=== PATIENT | male | born 1990 | race Caucasian/White ===

== ENCOUNTER → 2020-01-17 11:56 | Outpatient (BNVA) | payer OTHER, SELFPAY | PROVIDERS: Visit Provider Nurse Practitioner Family | DX: Z11.59 Encounter for screening for other viral diseases (principal); R43.0 Anosmia; J06.9 Acute upper respiratory infection, unspecified | CPT/HCPCS: 87635 ==

== ENCOUNTER 2021-01-05 10:30 | Emergency (ER) | payer SELFPAY ==
[2021-01-05 10:49] VITALS: BP 142/89; PULSE 79; RESP 17; TEMP 36.9; O2SAT 99; BMI 39.5
[2021-01-05 12:00] VITALS: BP 133/87; PULSE 74; O2SAT 99
[2021-01-05 12:55] VITALS: BP 142/85; PULSE 72; RESP 18; O2SAT 99
--- NOTE | 2021-01-05 13:00 | PC.NURSE ---
pt outside smoking review with pt the importance of staying in the waiting room. Pt denies Nausea/vomiting. pain is decrease
--- NOTE | 2021-01-05 14:21 | W.ED.ABDPA2 ---
HPI - Abdominal Pain General: Chief Complaint: Abdominal Pain Stated Complaint: ABD PAIN Time Seen by Provider: 01/05/21 14:11 History of Present Illness: HPI narrative: Patient is a 30-year-old male who comes to the ED with abdominal pain. Patient says that friends a week ago he noticed a small nodule that was tender right by his umbilicus. 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 He is able to push it back in and the nodule go away. Sometimes when he has the bulge coming out from his umbilicus region he feels quite a bit of pain. Currently here in the ED he does not have any protruding mass or hernia present. He also says his abdominal pain is very mild currently. Denies any vomiting, fever, chills, bladder or bowel symptoms. Associated Symptoms: Denies chills, constipation, diarrhea, dysuria, fever(s), hematochezia, hematuria, nausea and vomiting Review of Systems Const: Denies: fever(s), chills or fatigue Eyes: Denies: change in vision or eye discomfort ENMT: Denies: throat pain, odynophagia, nasal discharge or nasal congestion Card: Denies: chest pain, palpitations, edema, swelling of feet/ankles, dyspnea on exertion or orthopnea Resp: Denies: dyspnea, productive cough or non-productive cough GI: Reports: abdominal pain (hernia around umbilicus.); Denies: nausea, vomiting, diarrhea, constipation or hematochezia : Denies: flank pain, difficulty urinating, dysuria or hematuria Musc: Denies: neck pain, back pain or extremity swelling Skin/Breast: Denies: rash or new lesions Neuro: Denies: headache(s), numbness in extremities or weakness in extremities Physical Exam Const: COMMON NORMALS: no acute distress, patient oriented x3 and alert GENERAL APPEARANCE: cooperative and comfortable HENMT: COMMON NORMALS: normocephalic HEAD & SCALP: normocephalic MOUTH: Normal oral and palatal mucosa present THROAT: posterior oropharynx normal and uvula midline Neck/C-Spine: COMMON NORMALS: supple GENERAL: Yes normal visual inspection Resp: COMMON NORMALS: normal respiratory effort, No retractions, No use of accessory muscles and clear to auscultation bilaterally AUSCULTATION: clear to auscultation bilaterally Cardio: COMMON NORMALS: regular rate, regular rhythm, S1 normal heart sound present, S2 normal heart sound present, No gallops present (Cardio), No clicks present (Cardio), No murmurs present (Cardio) and Peripheral pulses 2+ throughout RATE: regular rate RHYTHM: regular rhythm HEART SOUNDS: S1 normal heart sound present and S2 normal heart sound present PERIPHERAL PULSES: Peripheral pulses 2+ throughout GI: COMMON NORMALS: Normal to inspection, nondistended, normoactive bowel sounds present, Soft to palpation, non-tender and no masses PALPATION: Yes Soft to palpation and No Hernia present (No palpable mass or nodule noted near the umbilicus.) : COMMON NORMALS: Yes no CVA tenderness BLADDER/KIDNEY EXAM: Yes no CVA tenderness Back/Pelvis: COMMON NORMALS: no CVA tenderness Extremity: COMMON NORMALS: normal to inspection Neuro: COMMON NORMALS: patient oriented x3 SENSORIUM/ORIENTATION: Yes alert Skin: GENERAL SKIN EXAM: dry skin Course Vital Signs: Vital signs: Vital Signs Temperature 98.5 F 01/05/21 10:49 Pulse Rate 72 01/05/21 12:55 Respiratory Rate 18 01/05/21 12:55 Blood Pressure 142/85 01/05/21 12:55 Pulse Oximetry 99 01/05/21 12:55 MDM - Abdominal Pain MDM Narrative: Medical decision making narrative: Patient is a 30-year-old male comes to the ED with complaints of a hernia around his umbilicus. He says it is reducible and whenever it starts protruding he is able to push it back in. Here in the ED patient has no pain, nausea vomiting, diarrhea or fevers. Exam is unremarkable and no palpable hernia identified on abdomen. Labs were unremarkable. CT of abdomen pelvis showed a small fat containing umbilical hernia. I placed an order with case management for patient to be referred to general surgery to evaluate his umbilical hernia. Patient was discharged home and diagnosed with an umbilical hernia. I told patient case management will be contacting them in the next several days set up appointment with general surgery to evaluate his hernia. Return to ED precautions given. Patient understood and agreed with plan. Lab Data: Attestation: I reviewed the patient's lab results. Labs: Lab Results 01/05/21 01/05/21 14:20 14:20 WBC 9.8 10^3/uL 10^3/ uL (4.0-10.0) RBC 4.96 10^6/uL 10^6 /uL (4.1-5.3) Hgb 16.0 g/dL g/dL (11.7-16.6) Hct 46.9 % % (42.0-52.0) MCV 94.6 fl H fl (80-94) MCH 32.3 pg pg (28.0-34.0) MCHC 34.1 g/dL g/dL (30.0-36.0) RDW 12.1 % % (12.1-15.1) Plt Count 222 10^3/cmm 10^3 /cmm (130-400) MPV 11.1 fL H fL (7.4-10.4) Neut % (Auto) 63.9 % % Lymph % (Auto) 26.1 % % [place] % (Auto) 7.0 % % Eos % (Auto) 1.6 % % Baso % (Auto) 1.0 % % Neut # (Auto) 6.25 10^3/uL 10^3 /uL (1.8-7.7) Lymph # (Auto) 2.6 10^3/uL 10^3/ uL (0.8-4.8) [place] # (Auto) 0.7 10^3/uL 10^3/ uL (0.2-0.9) Eos # (Auto) 0.2 10^3/uL 10^3/ uL (0.0-0.8) Baso # (Auto) 0.1 10^3/uL 10^3/ uL (0.0-0.1) Nucleated RBC % (a uto) 0 % % Nucleated RBCs # 0.0 /100WBC /100W BC Sodium 140 mmol/L mmol/L (136-145) Potassium 4.2 mmol/L mmol/L (3.5-5.1) Chloride 103 mmol/L mmol/L (98-107) Carbon Dioxide 26 mmol/L mmol/L (22-29) Anion Gap 15.2 (5-19) BUN 10 mg/dL mg/dL (6-20) Creatinine 0.7 mg/dL mg/dL (0.7-1.2) GFR Calculation 132.4 mL/min H mL /min (90-130) Glucose 73 mg/dL mg/dL (65-115) Calculated Osmolal ity 288 mOsm/kg mOsm/ kg (285-295) Calcium 8.9 mg/dL mg/dL (8.5-10.5) Total Bilirubin 0.3 mg/dL mg/dL (0.15-1.2) AST 32 U/L U/L (0-40) ALT 41 U/L U/L (0-41) Alkaline Phosphata se 76 IU/L IU/L (40-130) Total Protein 7.5 g/dL g/dL (6.6-8.7) Albumin 4.5 g/dL g/dL (3.5-5.2) Globulin 3.0 g/dL g/dL (1.3-4.6) Lipase 71 U/L H U/L (13-60) Imaging Data ^: CT Abd/Pel: Attestation: I personally reviewed and interpreted this imaging study as follows: Radiologist's impression: [facility] [address] [address] Scan Report Signed Patient: Norman Lamar Unit #: [id number] : 1990 Age/Sex: 30 / M ADM Date: 01/05/21 Loc: ER Room/Bed: Attending Dr: Ordering Provider/Ordering MD: Geo James Date of Service: 01/05/21 Procedure(s): CT abdomen pelvis w con* [id number] Accession Number(s): [id number] Report Number: [id number] PROCEDURE INFORMATION: Exam: CT Abdomen And Pelvis With Contrast Exam date and time: 01/05/2021 2:21 PM Age: 30 years old Clinical indication: Abdominal pain; Periumbilical; Patient HX: C/O intermittent umbilical pain and protrusion; Additional info: Umbilical hernia TECHNIQUE: Imaging protocol: Computed tomography of the abdomen and pelvis with contrast. Radiation optimization: All CT scans at this facility use at least one of these dose optimization techniques: automated exposure control; mA and/or kV adjustment per patient size (includes targeted exams where dose is matched to clinical indication); or iterative reconstruction. Contrast material: OMNI 300; Contrast volume: 95 ml; Contrast route: INTRAVENOUS (IV); COMPARISON: No relevant prior studies available. RADIATION DOSE METRICS: Total DLP (mGy-cm): 1733.63 FINDINGS: Liver: Normal. No mass. Gallbladder and bile ducts: Normal. No calcified stones. No ductal dilation. Pancreas: Normal. No ductal dilation. Spleen: Normal. No splenomegaly. Adrenal glands: Normal. No mass. Kidneys and ureters: Normal. No hydronephrosis. Stomach and bowel: No evidence of obstruction. No mucosal thickening. Appendix: No evidence of appendicitis. Intraperitoneal space: Unremarkable. No free air. No significant fluid collection. Vasculature: Unremarkable. No abdominal aortic aneurysm. Lymph nodes: Unremarkable. No enlarged lymph nodes. Urinary bladder: Unremarkable as visualized. Reproductive: Unremarkable as visualized. Bones/joints: Unremarkable. No acute fracture. Soft tissues: Tiny fat containing umbilical hernia. No herniation of bowel. CT/CT abdomen pelvis w con* [id number] IMPRESSION: Tiny fat containing umbilical hernia. Radiation Dose CTDIVOL = (mGy): DLP = 1733.63 (mGy-cm) Dictated By: Norman Mobley DO Signed By: Norman Mobley DO Signed Date/Time: 01/05/21 1507 DD/ 1505 Discharge Plan Discharge Patient Disposition: Home Clinical Impression: Hernia, umbilical Qualifiers: Obstruction and gangrene presence: without obstruction or gangrene Qualified Code(s): K42.9 - Umbilical hernia without obstruction or gangrene Condition: Stable Prescriptions: No Action No Known Home Medications RF: 0 Discharge Orders: Discharge ED (Routine); Ordered 01/05/21 Ordered By: Geo James Discharge Diet: Regular Discharge Activity: Resume usual activity Patient Instructions: Umbilical Hernia (ED) Activity Restrictions/Additional Instructions: Follow-up with medical provider as directed. Case management should be contacting you the next several days set up an appointment with a general surgeon. Take medications as prescribed. Return to the ER or your medical provider if condition worsens. Please read and understand discharge instructions. Thank you for choosing [facility] for your healthcare needs today. Please realize this is an emergency room and that we are providing you with a medical screening exam and this may not be complete and all inclusive of all the testing and or work up that you may need to determine your ailment or severity of your illness. It is very important that you follow up as instructed or that you return to the Emergency Department should you have concerns or if your condition changes or worsens in any way. Stand Alone Forms: Work/School Release Coding Level of Care Code ED Neon Light Installer for Silvana Fwroberto Exam Comprehensive
[2021-01-05 14:41] LABS: Basophils # 0.1 10^3/uL (0.0-0.1); Eosinophils # 0.2 10^3/uL (0.0-0.8); Eosinophils % 1.6 %; Hematocrit 46.9 % (42.0-52.0); Lymphocytes # 2.6 10^3/uL (0.8-4.8); Lymphocytes % 26.1 %; Mean Corpuscular HGB Conc 34.1 g/dL (30.0-36.0); Mean Corpuscular Hemoglobin 32.3 pg (28.0-34.0); Mean Corpuscular Volume 94.6 fl (80-94); Mean Platelet Volume 11.1 fL (7.4-10.4); Monocytes # 0.7 10^3/uL (0.2-0.9); Neutrophils # 6.25 10^3/uL (1.8-7.7); Neutrophils % 63.9 %; Nucleated Red Blood Cells % 0 %; Platelet Count 222 10^3/cmm (130-400); Red Blood Count 4.96 10^6/uL (4.1-5.3); Red Cell Distribution Width 12.1 % (12.1-15.1); White Blood Count 9.8 10^3/uL (4.0-10.0)
[2021-01-05] MEDS: iohexol 300 mg/mL 100 mL Btl IV (14:50)
[2021-01-05 15:02] LABS: Alanine Aminotransferase 41 U/L (0-41); Albumin Level 4.5 g/dL (3.5-5.2); Alkaline Phosphatase 76 IU/L (40-130); Blood Urea Nitrogen 10 mg/dL (6-20); Calcium 8.9 mg/dL (8.5-10.5); Carbon Dioxide 26 mmol/L (22-29); Chloride 103 mmol/L (98-107); Glomerular Filtration Rate 132.4 mL/min (90-130); Glucose 73 mg/dL (65-115); Lipase 71 U/L (13-60); Osmolality Calculated 288 mOsm/kg (285-295); Sodium 140 mmol/L (136-145); Total Bilirubin 0.3 mg/dL (0.15-1.2); Total Protein 7.5 g/dL (6.6-8.7)
[2021-01-05 15:17] LABS: Anion Gap 15.2 (5-19); Aspartate Amino Transferase 32 U/L (0-40); Potassium 4.2 mmol/L (3.5-5.1)
--- NOTE | 2021-01-06 10:09 | DCPLANNER ---
manager credit risk had message to schedule a followup appointment for patient with general surgery. manager credit risk emailed patients information to Dayami at [facility] General Surgery. Patients information will be printed and reviewed. Clinic will call patient with appointment information.
--- NOTE | 2021-01-09 15:08 | DCPLANNER ---
Patient has a follow up appointment scheduled for Wednesday, January 13, 2021 at 10:[address] Chambers. Clinic will call patient with appointment information.
--- NOTE | 2021-02-13 08:02 | DCPLANNER ---
Patient had a follow up appointment scheduled for 01.13.21 at 10:[address] Chambers at general surgery - patient did attend appointment.
== END 2021-01-05 15:29 | disposition home or self-care (01) ==
PROVIDERS: Emergency Provider Physician Assistant
DX: K42.9 Umbilical hernia without obstruction or gangrene (principal)
CPT/HCPCS: 74177; 80053; 83690; 85025; 99282; Q9967

== ENCOUNTER → 2021-01-16 14:47 | Outpatient (BNVA) | payer OTHER, SELFPAY | PROVIDERS: Visit Provider Surgery | DX: K42.9 Umbilical hernia without obstruction or gangrene (principal); Z01.812 Encounter for preprocedural laboratory examination; Z20.822 Contact with and (suspected) exposure to COVID-19 | CPT/HCPCS: 87635 ==

== ENCOUNTER 2021-01-21 11:44 | Day surgery (SDC) | payer OTHER, SELFPAY ==
[2021-01-20 13:54] VITALS: BMI 37.4
[2021-01-23 08:45] VITALS: BP 152/87; PULSE 82; RESP 16; TEMP 36.9; O2SAT 98
[2021-01-23] MEDS: sodium chloride 0.9% 1,000 ML 30 ML IV (09:28)
[2021-01-23] MEDS: acetaminophen 1,000 MG/100 ML PIGGYBACK 400 MG IV (09:29)
--- NOTE | 2021-01-23 09:41 | W.PM.OPSUD ---
Surgery/Procedure H&P Update DATE OF PROCEDURE: January 23, 2021 DATE H&P PERFORMED: 01/13/21 H&P UPDATE INFORMATION: I have reviewed H&P completed within last 30 days, I have examined patient prior to procedure and No changes to prior documentation PREOP DIAGNOSIS: Umbilical hernia PRIMARY INDICATION FOR PROCEDURE: The same PLANNED PROCEDURE: Operation Date: 01/23/21 10:15 Proposed Procedures p Umbilical Hernia Repair [id number] k42.9(Not Applicable) - Ten Chambers MD
[2021-01-23] MEDS: lidocaine 2% INJ 20 mL INJECTION (10:25)
--- NOTE | 2021-01-23 10:42 | PM.OP ---
Operative Report Date of procedure: January 23, 2021 Pre-op Diagnosis: Umbilical hernia Post-op diagnosis: same Post-op Findings: Small fascial defect about a centimeter in diameter Procedure Done: Open primary umbilical hernia repair Surgeon: Ten Chambers Air Antisubmarine Officer: Surgical chandrakant Lyon Circulating nurse Bertha Anesthesia: General (GETA leather flesher Michelle) Estimated blood loss (mL): 5 Condition: stable Disposition: same day Brief History: Symptomatic umbilical hernia. Procedure: Patient was identified in holding area and the site of the hernia was marked by me ,Patient was brought then to the operating room, general endotracheal anesthesia was administered by the anesthesia provider.prophylactic IV antibiotics were given per protocol Time-out was done verifying the patient's name/date of /planned procedure and destination after the procedure, all were in agreement. SCDs confirmed to be functioning, preoperative antibiotics administered per protocol, and beta babita protocol was confirmed. Prep and drape of the abdomen was done under the usual sterile technique. I started by Infraumbilical skin incision, I was able to identify a small umbilical hernia in the form of preperitoneal fat, dissection was carried all the way down to the fascia, preperitoneal content was pushed back and fascial defect was about centimeter in diameter. I was able to free the overlying fat on top of the fascia, facilitate primary closure under direct visualization I was able to use #1 PDS to repair the defect primarily as a [id number],thorough irrigation of the wound was then achieved and hemostasis.Followed by 2-0 Vicryl for deep subdermal continuous stitches, followed by 3-0 Vicryl, then 4-0 Monocryl was used for subcuticular closure of the skin incision. Lidocaine 2% was used for local infiltration to help postoperative pain Dermabond was then applied followed by an abdominal binder. Counts of sponges,needles and instruments were completed at the end of the procedure Patient tolerated the procedure well and was taken to the recovery area in stable condition I was present for the whole entire procedure
[2021-01-23 11:01] VITALS: BP 114/59; PULSE 86; RESP 18; TEMP 36.2; O2SAT 92
[2021-01-23 11:05] VITALS: BP 126/80; PULSE 79; RESP 18; TEMP 36.5; O2SAT 94
[2021-01-23 11:17] VITALS: BP 124/75; PULSE 67; RESP 18; TEMP 36.6; O2SAT 97
[2021-01-23 11:50] VITALS: BP 131/74; PULSE 71; RESP 16; TEMP 36.6; O2SAT 98
--- NOTE | 2021-01-23 12:25 | ANE.PACU2 ---
Inpatient post-anesthesia follow up: Airway intact: Yes Vital signs: Temperature 97.8 F Pulse Rate 71 Respiratory Rate 16 Blood Pressure 131/74 Pulse Oximetry 98 Oxygen Delivery Me thod Room Air Oxygen Flow Rate Fraction of Inspir ed Oxygen Hydration adequate: Yes Nausea and vomiting: No Pain level: 2 Mental status: Baseline
== END 2021-01-23 11:55 | disposition home or self-care (01) ==
PROVIDERS: Visit Provider Surgery
PROC: (CPT 49585; principal; 2021-01-23 10:15)
DX: K42.9 Umbilical hernia without obstruction or gangrene (principal); Z82.49 Family history of ischemic heart disease and other diseases of the circulatory system; F17.210 Nicotine dependence, cigarettes, uncomplicated
CPT/HCPCS: 49585; 96365; J0690; J2250; J2405; J2704; J2710; J3010; J3490; J7030

== ENCOUNTER → 2023-11-25 15:13 | Outpatient (BNVA) | payer OTHER, SELFPAY | PROVIDERS: PCP Nurse Practitioner Family; Visit Provider Nurse Practitioner Family | DX: B37.2 Candidiasis of skin and nail (principal) | CPT/HCPCS: 80053 ==

== ENCOUNTER → 2023-12-09 08:38 | Outpatient (BNVA) | payer OTHER, SELFPAY | PROVIDERS: PCP Nurse Practitioner Family; Visit Provider Nurse Practitioner Family | DX: R74.01 Elevation of levels of liver transaminase levels (principal) | CPT/HCPCS: 80053 ==

== ENCOUNTER 2024-03-29 01:55 | Emergency (ER) | payer OTHER, SELFPAY ==
[2024-03-29] VITALS (9 sets, daily range): BP systolic 126–160; BP diastolic 72–110; PULSE 59–69; RESP 18–20; TEMP 36.7; O2SAT 93–99; BMI 38.0
--- NOTE | 2024-03-29 02:12 | W.ED.ABDPA2 ---
HPI - Abdominal Pain General: Chief Complaint: Abdominal Pain Stated Complaint: left side pain Time Seen by Provider: 03/29/24 02:11 History of Present Illness: 34-year-old male, generally healthy, who awoke at 1230 this morning with left lower quadrant left flank pain. Pain is intense. He is nauseated. He has not vomited. No diarrhea. He has a history of a periumbilical hernia surgery. That is his only surgery. He felt well yesterday. No blood in the stool. No hematuria that he knows of. Related Data Previous Rx's Medication Instructions Recorded allopurinol 300 mg tablet 300 mg PO DAILY #90 tabs 07/20/23 indomethacin 75 mg 75 mg PO TID #21 caps 07/20/23 capsule,extended release amoxicillin 500 mg-potassium 1 tab PO TID 10 days #30 tabs 02/28/24 clavulanate 125 mg tablet (Augmentin) ondansetron 4 mg disintegrating 4 mg PO Q6H PRN nausea and 03/29/24 tablet vomiting #14 tabs oxycodone-acetaminophen 7.5 mg-325 1 tab PO Q6H PRN pain #7 tabs 03/29/24 mg tablet (Percocet) tamsulosin 0.4 mg capsule (Flomax) 0.4 mg PO DAILY #7 caps 03/29/24 Allergies Allergy/AdvReac Type Severity Reaction Status Date / Time No Known Allergies Allergy Verified 03/29/24 02:10 [facility] ED PFSH: Medical History Gout Elevated LFTs Umbilical hernia Family History Other CAD (coronary artery disease) Cancer Dementia Denies family history of Diabetes Chronic kidney disease (CKD) Lung disease Stroke Social History Smoking and tobacco/nicotine status: current every day tobacco/nicotine user Alcohol intake: current Alcohol intake frequency: few times a month Substance/Drug Use: current Substance/Drug use frequency: daily Lives independently: Yes Household members: family Physical Exam Const: GENERAL APPEARANCE: cooperative and ill appearing (And pain); not frail appearing HENMT: COMMON NORMALS: normocephalic, atraumatic and Normal external nose present HEAD & SCALP: normocephalic and atraumatic FACE & SINUS: normal facial exam and face symmetric NOSE: Normal external nose present Eye: COMMON NORMALS: Equal, round and reactive pupils present and EOMs intact bilaterally PUPIL: Yes Equal, round and reactive pupils present Neck/C-Spine: GENERAL: Yes trachea midline Chest: CHEST: Yes Symmetrical chest wall rise Resp: COMMON NORMALS: normal respiratory effort, No retractions, No use of accessory muscles and clear to auscultation bilaterally AUSCULTATION: clear to auscultation bilaterally Cardio: COMMON NORMALS: regular rate and regular rhythm RATE: regular rate RHYTHM: regular rhythm GI: COMMON NORMALS: Normal to inspection, nondistended, normoactive bowel sounds present PALPATION: Yes Tenderness to palpation present (GI) Details: LLQ and No Guarding due to palpation present (GI) : BLADDER/KIDNEY EXAM: Yes CVA tenderness on the left Back/Pelvis: GENERAL BACK: Yes CVA tenderness Extremity: COMMON NORMALS: no pedal edema Neuro: DANDRE COMA SCALE: document GCS findings Dandre coma scale eye opening: Spontaneous Dandre coma scale verbal response: Orientated [place] coma scale motor response: Obey commands Dandre coma scale total score: 15 SENSORY EXAM: Yes extremities (intact) Psych: COMMON NORMALS: speech normal SPEECH: Yes normal speech Skin: COMMON NORMALS: no rashes or lesions noted GENERAL SKIN EXAM: no rashes or lesions noted Course Vital Signs: Vital signs: Vital Signs Temperature 98.0 F 03/29/24 02:01 Pulse Rate 59 L 03/29/24 04:05 Respiratory Rate 18 03/29/24 02:27 Blood Pressure 126/92 03/29/24 04:05 Pulse Oximetry 95 03/29/24 04:05 Oxygen Delivery Me thod Room Air 03/29/24 02:01 MDM - Abdominal Pain Medical Decision Making White blood cell count is 11. Bicarbonate is 20. Blood sugar is 140. Lipase is mildly elevated at 150. Other laboratory is completely unremarkable. CT shows left hydronephrosis secondary to a 3 mm left UVJ calculus. There is no evidence of urinary tract infection on urinalysis. His pain is greatly improved. He will be allowed discharge with Flomax, antiemetic, pain medication. Return for worsening symptoms despite treatment. Lab Data 03/29/24 02:17 03/29/24 02:17 Labs/Radiology: Radiology Impressions Abdomen/Pelvis CT 03/29/24 02:24 IMPRESSION: 1. The left kidney is mildly edematous. There is mild left hydronephrosis and proximal hydroureter secondary to obstructive 3 mm calculus of the left ureterovesical junction. 2. No bowel obstruction or acute inflammation. Laboratory Results WBC 11.42 10^3/uL (3.29-11.43) 03/29/24 02:17 RBC 4.89 10^6/uL (3.85-5.65) 03/29/24 02:17 Hgb 16.00 g/dL (11.27-16.99) 03/29/24 02:17 Hct 45.9 % (37-53) 03/29/24 02:17 MCV 93.9 fl (82-101) 03/29/24 02:17 MCH 32.7 pg (27-33) 03/29/24 02:17 MCHC 34.9 g/dL (30-55) 03/29/24 02:17 RDW 12.0 % (12.1-15.1) L 03/29/24 02:17 Plt Count 229 10^3/cmm (157-399) 03/29/24 02:17 MPV 10.4 fL (7.4-10.4) 03/29/24 02:17 Neut % (Auto) 53.6 % 03/29/24 02:17 Lymph % (Auto) 34.4 % 03/29/24 02:17 [place] % (Auto) 8.3 % 03/29/24 02:17 Eos % (Auto) 2.3 % 03/29/24 02:17 Baso % (Auto) 0.9 % 03/29/24 02:17 Neut # (Auto) 6.12 10^3/uL (1.8-7.7) 03/29/24 02:17 Lymph # (Auto) 3.9 10^3/uL (0.8-4.8) 03/29/24 02:17 [place] # (Auto) 1.0 10^3/uL (0.2-0.9) H 03/29/24 02:17 Eos # (Auto) 0.3 10^3/uL (0.0-0.8) 03/29/24 02:17 Baso # (Auto) 0.1 10^3/uL (0.0-0.1) 03/29/24 02:17 Nucleated RBC % (auto) 0 % 03/29/24 02:17 Nucleated RBCs # 0.0 /100WBC 03/29/24 02:17 Sodium 139 mmol/L (136-145) 03/29/24 02:17 Potassium 3.8 mmol/L (3.5-5.1) 03/29/24 02:17 Chloride 104 mmol/L (98-107) 03/29/24 02:17 Carbon Dioxide 20 mmol/L (22-29) L 03/29/24 02:17 Anion Gap 18.8 (5-19) 03/29/24 02:17 BUN 12 mg/dL (6-20) 03/29/24 02:17 Creatinine 1.0 mg/dL (0.7-1.2) 03/29/24 02:17 GFR Calculation 85.5 mL/min (90-130) L 03/29/24 02:17 Glucose 140 mg/dL (65-115) H 03/29/24 02:17 Calculated Osmolality 290 mOsm/kg (285-295) 03/29/24 02:17 Calcium 9.1 mg/dL (8.5-10.5) 03/29/24 02:17 Total Bilirubin 0.2 mg/dL (0.15-1.2) 03/29/24 02:17 AST 29 U/L (0-40) 03/29/24 02:17 ALT 47 U/L (0-41) H 03/29/24 02:17 Alkaline Phosphatase 107 U/L (40-130) 03/29/24 02:17 C-Reactive Protein 7.4 mg/L (0.0-4.9) H 03/29/24 02:17 Total Protein 7.2 g/dL (6.6-8.7) 03/29/24 02:17 Albumin 4.3 g/dL (3.5-5.2) 03/29/24 02:17 Globulin 2.9 g/dL (1.3-4.6) 03/29/24 02:17 Lipase 151 U/L (13-60) H 03/29/24 02:17 Urine Color Yellow (Yellow) 03/29/24 03:19 Urine Appearance Clear (CLEAR) 03/29/24 03:19 Urine pH 5.0 (5-7) 03/29/24 03:19 Ur Specific [place] 1.029 (1.005-1.030) 03/29/24 03:19 Urine Protein 1+ (Negative) A 03/29/24 03:19 Urine Glucose (UA) Negative (Normal) 03/29/24 03:19 Urine Ketones Negative (Negative) 03/29/24 03:19 Urine Blood 1+ (Negative) A 03/29/24 03:19 Urine Nitrate Negative (Negative) 03/29/24 03:19 Urine Bilirubin Negative (Negative) 03/29/24 03:19 Urine Urobilinogen 1.0 mg/dL (Negative) 03/29/24 03:19 Ur Leukocyte Esterase Negative (Negative) 03/29/24 03:19 Urine RBC 0-2 /hpf (0-2) 03/29/24 03:19 Urine WBC 0-5 /hpf (0-5) 03/29/24 03:19 Ur Squamous Epith Cells 0-5 /hpf (0-5) 03/29/24 03:19 Amorphous Sediment Not Reportable 03/29/24 03:19 Urine Bacteria None seen /hpf (NONE) 03/29/24 03:19 Hyaline Casts 1.65 /lpf 03/29/24 03:19 All radiology interpretation(s) finalized by discharge Discharge Plan Discharge Patient Disposition: Home Clinical Impression: Ureterolithiasis Condition: Stable Prescriptions: New oxycodone-acetaminophen [Percocet] 7.5-325 mg tablet 1 tab PO Q6H PRN (Reason: pain) Qty: 7 0RF ondansetron 4 mg tablet,disintegrating 4 mg PO Q6H PRN (Reason: nausea and vomiting) Qty: 14 0RF tamsulosin [Flomax] 0.4 mg capsule 0.4 mg PO DAILY Qty: 7 0RF No Action allopurinol 300 mg tablet 300 mg PO DAILY Qty: 90 3RF indomethacin 75 mg capsule, extended release 75 mg PO TID Qty: 21 0RF amoxicillin-pot clavulanate [Augmentin] 500-125 mg tablet 1 tab PO TID 10 Days Qty: 30 0RF Discharge Orders: Discharge ED (Routine); Ordered 03/29/24 Ordered By: Mainor Villegas Referrals: Onelia Ramos FNP-C [Primary Care Provider] - 4-7 days Patient Instructions: Kidney Stones (ED), Opioid Safety, Pain Management Activity Restrictions/Additional Instructions: Return for fever greater than 100, worsening pain despite treatment, vomiting liquids or medications, other concerning symptoms. Be sure to strain your urine to ensure that the stone passes. See your doctor this week. Coding Level of Care Code ED Tableau Lead for Silvana Singleton
--- NOTE | 2024-03-29 02:24 | CTR_ITS ---
PROCEDURE INFORMATION: Exam: CT Abdomen And Pelvis Without Contrast Exam date and time: 03/29/2024 2:40 AM Age: 34 years old Clinical indication: Abdominal pain; Flank; Left lower quadrant (llq); Prior surgery; Surgery date: 6+ months; Surgery type: Umbilical hernia; Additional info: Llq/flank pain TECHNIQUE: Imaging protocol: Computed tomography of the abdomen and pelvis without contrast. Radiation optimization: All CT scans at this facility use at least one of these dose optimization techniques: automated exposure control; mA and/or kV adjustment per patient size (includes targeted exams where dose is matched to clinical indication); or iterative reconstruction. COMPARISON: CT abdomen pelvis w con* [id number] 01/05/2021 2:46 PM RADIATION DOSE METRICS: Total DLP (mGy-cm): 1091.53 FINDINGS: Lungs: Lung bases are clear as visualized. Liver: Normal. No mass. Gallbladder and biliary ducts: Normal. No calcified stones. No ductal dilation. Pancreas: Normal. No ductal dilation. Spleen: Normal. No splenomegaly. Adrenal glands: Normal. No mass. Kidneys and ureters: The left kidney is mildly edematous. There is mild left hydronephrosis and proximal hydroureter secondary to obstructive 3 mm calculus of the left ureterovesical junction. Mild left ureter urothelial thickening impression. Nonobstructive punctate calculus inferior pole of the right kidney. Stomach and bowel: No bowel obstruction or acute inflammation. Appendix: Appendix is normal. Intraperitoneal space: Unremarkable. No free air. No significant fluid collection. Vasculature: Unremarkable. No abdominal aortic aneurysm. Lymph nodes: Unremarkable. No enlarged lymph nodes. Urinary bladder: Unremarkable as visualized. Reproductive: Unremarkable as visualized. Bones/joints: Unremarkable. No acute fracture. Soft tissues: Unremarkable. CT/CT kidney stone [id number] IMPRESSION: 1. The left kidney is mildly edematous. There is mild left hydronephrosis and proximal hydroureter secondary to obstructive 3 mm calculus of the left ureterovesical junction. 2. No bowel obstruction or acute inflammation.
[2024-03-29] MEDS: morphine 4 mg/mL SDV 1 mL IVP ×2 (02:27→05:09)
[2024-03-29] MEDS: ondansetron 2 mg/ML SDV 2 mL 4 MG IVP (02:27)
[2024-03-29 02:28] LABS: Basophils # 0.1 10^3/uL (0.0-0.1); Basophils % 0.9 %; Eosinophils # 0.3 10^3/uL (0.0-0.8); Eosinophils % 2.3 %; Hematocrit 45.9 % (37-53); Lymphocytes # 3.9 10^3/uL (0.8-4.8); Lymphocytes % 34.4 %; Mean Corpuscular HGB Conc 34.9 g/dL (30-55); Mean Corpuscular Hemoglobin 32.7 pg (27-33); Mean Corpuscular Volume 93.9 fl (82-101); Mean Platelet Volume 10.4 fL (7.4-10.4); Monocytes % 8.3 %; Neutrophils # 6.12 10^3/uL (1.8-7.7); Neutrophils % 53.6 %; Nucleated Red Blood Cells % 0 %; Platelet Count 229 10^3/cmm (157-399); Red Blood Count 4.89 10^6/uL (3.85-5.65); White Blood Count 11.42 10^3/uL (3.29-11.43)
[2024-03-29] MEDS: ketorolac 30 mg/mL INJ IVP (02:28)
[2024-03-29 02:49] LABS: Alanine Aminotransferase 47 U/L (0-41); Albumin Level 4.3 g/dL (3.5-5.2); Alkaline Phosphatase 107 U/L (40-130); Anion Gap 18.8 (5-19); Aspartate Amino Transferase 29 U/L (0-40); Blood Urea Nitrogen 12 mg/dL (6-20); C Reactive Protein 7.4 mg/L (0.0-4.9); Calcium 9.1 mg/dL (8.5-10.5); Carbon Dioxide 20 mmol/L (22-29); Chloride 104 mmol/L (98-107); Creatinine Clr Calc Pharmacy 127.1988; Globulin 2.9 g/dL (1.3-4.6); Glomerular Filtration Rate 85.5 mL/min (90-130); Glucose 140 mg/dL (65-115); Lipase 151 U/L (13-60); Osmolality Calculated 290 mOsm/kg (285-295); Potassium 3.8 mmol/L (3.5-5.1); Sodium 139 mmol/L (136-145); Total Bilirubin 0.2 mg/dL (0.15-1.2); Total Protein 7.2 g/dL (6.6-8.7)
[2024-03-29 03:24] LABS: Bilirubin Urine Negative (Negative); Blood Urine 1+ (Negative); Glucose Urine UA Negative (Normal); Ketones Urine Negative (Negative); Leukocyte Esterase Urine Negative (Negative); Nitrate Urine Negative (Negative); Protein Urine 1+ (Negative); Specific Gravity, Urine 1.029 (1.005-1.030); Urine Appearance Clear (CLEAR); Urine Color Yellow (Yellow)
[2024-03-29 03:29] LABS: Add Urine Microscopic? YES; Bacteria Urine None Seen /hpf; Hyaline Casts Urine 1.65 /lpf; RBC Urine 0-2 /hpf (0-2); Squamous Epithelial Cell Urine 0-5 /hpf (0-5); WBC Urine 0-5 /hpf (0-5)
[2024-03-29] MEDS: oxyCODONE-APAP 5-325 mg Tablet 2 TAB PO (05:06)
[2024-03-29] MEDS: ketorolac 10 mg Tablet PO (05:08)
[2024-03-29] MEDS: tamsulosin 0.4 mg Capsule PO (05:09)
--- NOTE | 2024-03-29 08:07 | ECG_ITS ---
[facility] Date: 2024-03-29 Pat Name: Norman Lamar Department: Room: Gender: Male Director Phone: : [phone] Requested By: Mainor Guardado Order Number: [id number] Latia MD: Mamie Nieto M.D. Measurements Intervals Home Rate: 67 P: 40 [place]: 164 QRS: 46 QRSD: 87 T: 31 QT: 397 QTc: 420 Interpretive Statements SINUS RHYTHM WITH SINUS ARRHYTHMIA No previous ECG available for comparison Electronically Signed On 03-29-2024 17:39:20 TICKETING CLERK by Mamie Nieto M.D. [id number]
== END 2024-03-29 05:25 | disposition home or self-care (01) ==
PROVIDERS: Emergency Provider Emergency Medicine; PCP Nurse Practitioner Family
DX: N20.1 Calculus of ureter (principal); Z72.0 Tobacco use
CPT/HCPCS: 36415; 74176; 80053; 81001; 83690; 85025; 86140; 93005; 96374; 96375; 96376; 99285; J1885; J2270; J2405

== ENCOUNTER → 2024-11-29 10:12 | Outpatient (BNVA) | payer OTHER, SELFPAY | PROVIDERS: PCP Clinical Nurse Specialist Adult Health; Visit Provider Clinical Nurse Specialist Adult Health | DX: I10 Essential (primary) hypertension (principal); M10.9 Gout, unspecified; E66.01 Morbid (severe) obesity due to excess calories; R03.0 Elevated blood-pressure reading, without diagnosis of hypertension | CPT/HCPCS: 80053; 83036; 84550; 85025 ==

== ENCOUNTER 2024-12-06 17:41 | Emergency (ER) | payer SELFPAY ==
[2024-12-06 17:46] VITALS: BP 132/91; PULSE 92; RESP 16; TEMP 36.4; O2SAT 98
[2024-12-06 18:09] VITALS: BP 165/104; O2SAT 97
--- NOTE | 2024-12-06 18:11 | USR_ITS ---
PROCEDURE INFORMATION: Exam: US Abdomen, Limited; Right Upper Quadrant Exam date and time: 12/06/2024 6:37 PM Age: 34 years old Clinical indication: Abdominal pain; Additional info: Ruq pain TECHNIQUE: Imaging protocol: Real time ultrasound of the abdomen with image documentation. Limited exam focused on the right upper quadrant. COMPARISON: CT kidney stone [id number] 03/29/2024 2:40 AM FINDINGS: Liver: Measures 15.5 cm in length. There is diffuse increased echogenicity throughout the liver compatible with fatty infiltration. No discrete mass is seen. Gallbladder: Unremarkable. No gallstones. There is no gallbladder wall thickening. Biliary ducts: Common bile duct is normal in caliber measuring 3 mm. No stones. No intrahepatic biliary ductal dilation. Pancreas: Poorly visualized due to overlying bowel gas. Right kidney: Measures 10.8 cm in length. No mass. No hydronephrosis. Vascular: The abdominal aorta is normal in caliber. The IVC is unremarkable. Normal flow is seen in the main portal vein. US/US gall bladder [id number] IMPRESSION: 1. Fatty infiltration of the liver. 2. No cholelithiasis or sonographic evidence of acute cholecystitis. 3. Pancreas poorly visualized due to overlying bowel gas.
--- NOTE | 2024-12-06 18:12 | ED_ITS ---
HPI - General Adult 2 General: Chief complaint: Abdominal Pain Stated complaint: R Upper ABD Pain Time Seen by Provider: 12/06/24 17:47 History of Present Illness: Patient is a 34-year-old male presenting with a chief complaint of several weeks of right upper quadrant abdominal pain/lower rib cage pain. Patient has had a cough with production of green/yellow sputum but denies fever, shortness of breath, painful respirations or chest pain. Patient denies any nausea, vomiting or worsening of pain with eating. No diarrhea, blood in stool, dysuria, hematuria or increased frequency. He denies back pain. Patient states he does have a history of kidney stones. He denies any previous abdominal surgeries aside from hernia repair. He has not experienced syncope, painful respiration, hemoptysis or unilateral lower extremity swelling. Related Data Previous Rx's ?Medication ?Instructions ?Recorded allopurinol 100 mg tablet 200 mg (2 x 100 mg) PO BID 9 0 days 11/29/24 #360 tabs indomethacin 75 mg 75 mg PO TID #21 caps capsule,extended release ketorolac 10 mg tablet 10 mg PO Q6H PRN pain 5 days #20 12/06/24 tabs methocarbamol 500 mg tablet 1,000 mg (2 x 500 mg) PO T ID PRN 12/06/24 muscle pain and spasm #30 tabs Allergies Allergy/AdvReac Type Severity Reaction Status Date / Time No Known Allergies Allergy Verified 11/29/24 09:33 [facility] ED 2 [facility]: Medical History (Updated 12/06/24 @ 20:06 by Liz Andrade MD) Renal calculi 2023 Witnessed episode of apnea Tobacco dependence due to cigarettes Morbid obesity Chronic gout without tophus, unspecified cause, unspecified site Elevated LFTs Surgical History H/O umbilical hernia repair Family History Other CAD (coronary artery disease) Cancer Dementia Heart disease Hyperlipidemia Hypertension Denies family history of Diabetes Chronic kidney disease (CKD) Lung disease Stroke Social History Smoking and tobacco/nicotine status: current every day tobacco/nicotine user cigarettes [ Other cigarette details: 15 pack year history] Alcohol intake: current Alcohol intake frequency: few times a month Substance/Drug Use: current Substance/Drug use frequency: few times a week Lives independently: Yes Household members: family Marital status: Number of children: 1 Current occupational status: employed Physical Exam 2 Narrative: EXAM NARRATIVE: Vital signs were reviewed. Patient is alert and oriented. Patient is breathing comfortably, no increased WOB or accessory muscle use. SpO2 is above 95% on RA. Patient has clear lung sounds bilaterally without wheezing or crackles. Abdomen is soft, nondistended. +Soliz's sign. No hypotension or tachycardia. Patient is moving all extremities, no deformity or gross injury. No LE asymmetric swelling or edema. Course 2 Vital Signs: Vital signs: Vital Signs Temperature 97.6 F 12/06/24 17:46 Pulse Rate 92 12/06/24 17:46 Respiratory Rate 16 12/06/24 17:46 Blood Pressure 138/101 12/06/24 18:36 Pulse Oximetry 94 12/06/24 19:06 Oxygen Delivery Me thod Room Air 12/06/24 19:06 MDM - General Adult Medical Decision Making 34-year-old male with a chief complaint of right upper quadrant pain, states it has been ongoing for several weeks. Differential diagnosis includes but is not limited to, viral upper respiratory infection, pneumonia, pneumothorax, pleural effusion, cholecystitis, choledocholithiasis, pancreatitis, kidney stone, urinary tract infection, pyelonephritis, PE. On initial exam he centrically stable nontoxic-appearing. Patient was evaluate CBC, CMP, lipase, UA, ultrasound of the gallbladder and chest x-ray. Patient has a normal white blood cell count and is not anemic. He does not have an elevated creatinine, has normal LFTs and has mildly elevate lipase which could be consistent w/pancreatitis however patient is not very tender in the epigastrium; we discussed that it may be a possibility and advised diet changes. Otherwise, ultrasound does not show gallstones or evidence of cholecystitis, D-dimer is negative which decreases my suspicion for PE and there is no pneumonia on chest x-ray. At this time, patient is appropriate for outpatient management and discharge. He was counseled on supportive care at home, given return precautions and discharged in stable condition. l Lab Data 12/06/24 18:17 12/06/24 19:22 Radiology Impressions Gallbladder Ultrasound 12/06/24 18:11 IMPRESSION: 1. Fatty infiltration of the liver. 2. No cholelithiasis or sonographic evidence of acute cholecystitis. 3. Pancreas poorly visualized due to overlying bowel gas. Chest X-Ray 12/06/24 18:17 IMPRESSION: No acute findings. Laboratory Results WBC 10.02 10^3/uL (3.29-11.43) 12/06/24 18:17 RBC 4.61 10^6/uL (3.85-5.65) 12/06/24 18:17 Hgb 15.50 g/dL (11.27-16.99) 12/06/24 18:17 Hct 43.7 % (37-53) 12/06/24 18:17 MCV 94.8 fl (82-101) 12/06/24 18:17 MCH 33.6 pg (27-33) H 12/06/24 18:17 MCHC 35.5 g/dL (30-55) 12/06/24 18:17 RDW 12.4 % (12.1-15.1) 12/06/24 18:17 Plt Count 189 10^3/cmm (157-399) 12/06/24 18:17 MPV 10.9 fL (7.4-10.4) H 12/06/24 18:17 Neut % (Auto) 58.4 % 12/06/24 18:17 Lymph % (Auto) 30.7 % 12/06/24 18:17 [place] % (Auto) 7.3 % 12/06/24 18:17 Eos % (Auto) 2.2 % 12/06/24 18:17 Baso % (Auto) 0.9 % 12/06/24 18:17 Neut # (Auto) 5.85 10^3/uL (1.8-7.7) 12/06/24 18:17 Lymph # (Auto) 3.1 10^3/uL (0.8-4.8) 12/06/24 18:17 [place] # (Auto) 0.7 10^3/uL (0.2-0.9) 12/06/24 18:17 Eos # (Auto) 0.2 10^3/uL (0.0-0.8) 12/06/24 18:17 Baso # (Auto) 0.1 10^3/uL (0.0-0.1) 12/06/24 18:17 Nucleated RBC % (auto) 0 % 12/06/24 18:17 Nucleated RBCs # 0.0 /100WBC 12/06/24 18:17 D-Dimer 0.34 ug/mLFEU (0-0.59) 12/06/24 19:22 Sodium 140 mmol/L (136-145) 12/06/24 19:22 Potassium 4.1 mmol/L (3.5-5.1) 12/06/24 19:22 Chloride 105 mmol/L (98-107) 12/06/24 19:22 Carbon Dioxide 22 mmol/L (22-29) 12/06/24 19:22 Anion Gap 17.1 (5-19) 12/06/24 19:22 BUN 12 mg/dL (6-20) 12/06/24 19:22 Creatinine 0.9 mg/dL (0.7-1.2) 12/06/24 19:22 GFR Calculation 96.6 mL/min (90-130) 12/06/24 19:22 Glucose 99 mg/dL (65-115) 12/06/24 19:22 Calculated Osmolality 290 mOsm/kg (285-295) 12/06/24 19:22 Calcium 8.8 mg/dL (8.5-10.5) 12/06/24 19:22 Total Bilirubin 0.3 mg/dL (0.15-1.2) 12/06/24 19:22 AST 27 U/L (0-40) 12/06/24 19:22 ALT 50 U/L (0-41) H 12/06/24 19:22 Alkaline Phosphatase 98 U/L (40-130) 12/06/24 19:22 Total Protein 7.4 g/dL (6.6-8.7) 12/06/24 19:22 Albumin 4.2 g/dL (3.5-5.2) 12/06/24 19:22 Globulin 3.2 g/dL (1.3-4.6) 12/06/24 19:22 Lipase 297 U/L (13-60) H 12/06/24 19:22 Urine Color Yellow (Yellow) 12/06/24 18:11 Urine Appearance Clear (CLEAR) 12/06/24 18:11 Urine pH 5.5 (5-7) 12/06/24 18:11 Ur Specific [place] 1.029 (1.005-1.030) 12/06/24 18:11 Urine Protein Negative (Negative) 12/06/24 18:11 Urine Glucose (UA) Negative (Normal) 12/06/24 18:11 Urine Ketones Negative (Negative) 12/06/24 18:11 Urine Blood Negative (Negative) 12/06/24 18:11 Urine Nitrate Negative (Negative) 12/06/24 18:11 Urine Bilirubin Negative (Negative) 12/06/24 18:11 Urine Urobilinogen 1.0 mg/dL (Negative) 12/06/24 18:11 Ur Leukocyte Esterase Negative (Negative) 12/06/24 18:11 Urine RBC 0-2 /hpf (0-2) 12/06/24 18:11 Urine WBC 0-5 /hpf (0-5) 12/06/24 18:11 Ur Squamous Epith Cells 0-5 /hpf (0-5) 12/06/24 18:11 Amorphous Sediment Not Reportable 12/06/24 18:11 Urine Bacteria None seen /hpf (NONE) 12/06/24 18:11 Hyaline Casts 0-4 /lpf H 12/06/24 18:11 All radiology interpretation(s) finalized by discharge Discharge Plan Discharge Patient Disposition: Home Clinical Impression: Right sided abdominal pain Condition: Stable Prescriptions: New ketorolac 10 mg tablet 10 mg PO Q6H PRN (Reason: pain) 5 Days Qty: 20 0RF methocarbamol 500 mg tablet 1,000 mg PO TID PRN (Reason: muscle pain and spasm) Qty: 30 0RF No Action indomethacin 75 mg capsule, extended release 75 mg PO TID Qty: 21 0RF allopurinol 100 mg tablet 200 mg PO BID 90 Days Qty: 360 3RF Discharge Orders: Discharge ED (Routine); Ordered 12/06/24 Ordered By: Liz Andrade Referrals: Dandre Irizarry BUILDING ATTENDANT [Primary Care Provider, Family Practice] Patient Instructions: Abdominal Pain (ED), Opioid Safety, Pain Management, Patient Portal & Cem Instructions Activity Restrictions/Additional Instructions: Please continue to monitor your condition closely at home. Take Ibuprofen 400mg and Tylenol 500-1000mg every six hours for pain and inflammation. You may also try a muscle relaxer, Robaxin, for muscle pain and spasm. If your condition worsens or additional concerns arise, please return promptly to the emergency department for reassessment. Follow up with your primary care doctor in one week. Print Language: [place] Coding Level of Care Code ED Supervisor [employer] for Silvana Singleton
--- NOTE | 2024-12-06 18:17 | XRR_ITS ---
PROCEDURE INFORMATION: Exam: XR Chest Exam date and time: 12/06/2024 6:20 PM Age: 34 years old Clinical indication: Other: Lower RT side chest/upper RT side abdominal pain; Additional info: R side pain/cough TECHNIQUE: Imaging protocol: Radiologic exam of the chest. Views: 2 views. COMPARISON: CT kidney stone [id number] 03/29/2024 2:40 AM FINDINGS: Lungs: Clear. No consolidation. Pleural spaces: No significant pleural effusion. No pneumothorax. Heart/Mediastinum: Within normal limits. Bones/joints: Intact. Other findings: None. XR/XR chest 2V* [id number] IMPRESSION: No acute findings.
[2024-12-06 18:27] LABS: Glucose Urine UA Negative (Normal); Nitrate Urine Negative (Negative); Specific Gravity, Urine 1.029 (1.005-1.030)
[2024-12-06 18:30] LABS: Add Urine Microscopic? YES
[2024-12-06 18:32] LABS: Hematocrit 43.7 % (37-53); Hemoglobin 15.50 g/dL (11.27-16.99); Mean Corpuscular HGB Conc 35.5 g/dL (30-55); Mean Corpuscular Hemoglobin 33.6 pg (27-33); Mean Corpuscular Volume 94.8 fl (82-101); Nucleated Red Blood Cells % 0 %; Platelet Count 189 10^3/cmm (157-399); Red Blood Count 4.61 10^6/uL (3.85-5.65); White Blood Count 10.02 10^3/uL (3.29-11.43)
[2024-12-06 18:36] VITALS: BP 138/101
[2024-12-06 19:06] VITALS: O2SAT 94
[2024-12-06 19:45] LABS: Alanine Aminotransferase 50 U/L (0-41); Albumin Level 4.2 g/dL (3.5-5.2); Alkaline Phosphatase 98 U/L (40-130); Anion Gap 17.1 (5-19); Aspartate Amino Transferase 27 U/L (0-40); Blood Urea Nitrogen 12 mg/dL (6-20); Calcium 8.8 mg/dL (8.5-10.5); Carbon Dioxide 22 mmol/L (22-29); Chloride 105 mmol/L (98-107); Creatinine Clr Calc Pharmacy 148.7520; Globulin 3.2 g/dL (1.3-4.6); Glucose 99 mg/dL (65-115); Lipase 297 U/L (13-60); Osmolality Calculated 290 mOsm/kg (285-295); Potassium 4.1 mmol/L (3.5-5.1); Sodium 140 mmol/L (136-145); Total Protein 7.4 g/dL (6.6-8.7)
[2024-12-06 20:18] VITALS: BP 152/87; PULSE 97; RESP 16; O2SAT 95
[2024-12-06] MEDS: oxyCODONE 5 mg IR Tab/Cap PO (20:18)
== END 2024-12-06 20:19 | disposition home or self-care (01) ==
PROVIDERS: Emergency Provider Emergency Medicine; PCP Clinical Nurse Specialist Adult Health
DX: R10.11 Right upper quadrant pain (principal); F17.210 Nicotine dependence, cigarettes, uncomplicated
CPT/HCPCS: 36415; 71046; 76705; 80053; 81001; 83690; 85025; 85378; 96374; 99284; J1885; J9999